=== PATIENT | female | born 1970 | race Caucasian/White ===

== ENCOUNTER → 2019-02-13 16:52 | Outpatient (CLI) | payer OTHER, SELFPAY ==
[2019-02-16 08:33] LABS: Age Gdln ACOG Testing 30-65 (.)
[2019-02-16 11:55] LABS: HPV APTIMA, High Risk Negative (Negative)
[2019-02-16 11:57] LABS: HPV Reflexed? YES, CHARGE PATIENT
== END ==
PROVIDERS: Visit Provider Obstetrics & Gynecology
DX: Z12.4 Encounter for screening for malignant neoplasm of cervix (principal)
CPT/HCPCS: 87624; 88175; G0145

== ENCOUNTER → 2020-06-25 | Outpatient (CLI) | payer OTHER, SELFPAY ==
[2020-06-28 20:35] LABS: HPV APTIMA, High Risk Negative (Negative)
== END | disposition home or self-care (01) ==
LOC: LABSPEC 15:01
PROVIDERS: Visit Provider Obstetrics & Gynecology
DX: Z12.4 Encounter for screening for malignant neoplasm of cervix (principal)
CPT/HCPCS: 87624; 88175; G0145

== ENCOUNTER → 2020-10-05 | Outpatient (CLI) | payer OTHER, SELFPAY | END | disposition home or self-care (01) | LOC: LABSPEC 10:52 | PROVIDERS: Visit Provider Otolaryngology | DX: H92.10 Otorrhea, unspecified ear (principal) | CPT/HCPCS: 87070; 87075; 87205 ==

== ENCOUNTER → 2021-01-03 | Outpatient (CLI) | payer OTHER, SELFPAY | END | disposition home or self-care (01) | LOC: LABSPEC 15:14 | PROVIDERS: Referring Provider Otolaryngology; Visit Provider Otolaryngology | DX: H92.10 Otorrhea, unspecified ear (principal) | CPT/HCPCS: 87070; 87075; 87205 ==

== ENCOUNTER → 2022-05-05 | Outpatient (CLI) | payer OTHER, SELFPAY ==
--- NOTE | 2022-05-04 13:50 | FLU_PTH ---
PATIENT: MARCY PIRES [facility]: [facility] U#:[id number] AGE/SX: 51/F ROOM: RE05/05/[address]: Dr. David Live MD : 1970 BED: DIS: 05/05/2022 SPEC #: [id number] RECD: 05/05/22 08:14 STATUS: PETER POOL #: [id number] ELPIDIO: 05/04/22 13:[address]: David Live DEPT: CYTOLOGY RECD BY: Gia Silvestre ENTERED: 05/05/22 10:12 SP TYPE: Fluid OTHR DR: Dr. Radha Fischer MD Tissues: A - Thyroid gland, NOS B - Thyroid gland, NOS Procedures: Special Stain Group II Surgery Specimen Level IV Cytospin Fluid Cytology Other HEADER OPERATION: Fine needle aspiration right mid pole thyroid nodule PRE-OP DIAGNOSIS: Multiple thyroid nodules TISSUE SUBMITTED: A - Right mid pole thyroid nodule fluid, B - Right mid pole thyroid nodule x4 slides DIAGNOSIS CYTOLOGY A. Right mid pole thyroid nodule fluid, fine needle aspiration (cytospin and cell block): Consistent with benign follicular/colloid nodule ([place] Category II). Adequate for evaluation. See comment. B. Right mid pole thyroid nodule, fine needle aspiration (smears): Consistent with benign follicular/colloid nodule ([place] Category II). Adequate for evaluation. See comment. SJ:richa 05/06/2022 COMMENT Correlation with clinical, radiologic findings and appropriate follow up are necessary. CYTOLOGY STUDY Slides are reviewed. CYTOLOGY GROSS A - Received is 40 ml of red cloudy fluid labeled with the patient's name and and designated per the requisition as right mid pole thyroid nodule. Submitted for cytology preparation including cell block. B - Received are four smears labeled with the patient's name and designated per the requisition as right mid pole thyroid nodule. Submitted for staining. / richa 05/05/2022 TC:5 CPT: 06178 x2, 42529
== END | disposition home or self-care (01) ==
PROVIDERS: PCP Internal Medicine; Referring Provider Surgery; Visit Provider Surgery
DX: E04.2 Nontoxic multinodular goiter (principal)
CPT/HCPCS: 88108; 88161; 88305; 88313

== ENCOUNTER 2022-08-13 08:25 | Day surgery (SDC) | payer OTHER, SELFPAY ==
[2022-08-13] MEDS: Lactated Ringers 1,000 ML 15 ML IV (09:07)
[2022-08-13 09:09] VITALS: BP 110/78; PULSE 70; RESP 18; TEMP 36.6; O2SAT 100; BMI 20.2
[2022-08-13 09:21] LABS: Internal QC Validated? YES +Cl - CLEAR BKGD; Pregnancy, Serum, hCG Quali. NEGATIVE Negative
--- NOTE | 2022-08-13 09:26 | HP.PCM_ITS ---
[facility] - General General Date of Admission: 08/13/22 Date of Service: 08/13/22 Chief Complaint: Screening colonoscopy HPI Narrative MARCY PIRES, is a 51 F who presents today for screening colonoscopy. She has no significant past history. She does not take any medicines on a daily basis. She had a colonoscopy approximately 20 years ago for constipation. She does not have any abdominal pain. She not have any nausea, vomiting or diarrhea. She is not having any chest pain or shortness of breath. She is here for screening colonoscopy. FORMERLY [facility], [facility] Medical History (Updated 08/05/22 @ 12:21 by Aby Brown) Thyroid nodule Wears glasses Home Medications azelastine 137 mcg (0.1 %) nasal spray aerosol 2 spray intranasal DAILY 05/04/22 [History Last Taken Unknown] fluticasone propionate 50 mcg/actuation nasal spray,suspension (Allergy Relief (fluticasone)) 2 spray intranasal DAILY 05/04/22 [History Last Taken Unknown] multivitamin 1 tab PO DAILY 05/25/22 [History Last Taken Unknown] polyethylene glycol 3350 17 gram/dose oral powder (Miralax) 4 g PO DAILY PRN constipation 05/25/22 [History Last Taken Unknown] Allergy/AdvReac Type Severity Reaction Status Date / Time No Known Allergies Allergy Verified 08/13/22 09:06 Family History (Updated 05/25/22 @ 08:44 by Yvette Conteh) Father Cancer prostate, stomach Heart disease Hypertension High cholesterol CVA (cerebral vascular accident) Colon polyps Mother Hypertension Osteoporosis Grandfather Wendi Gehrig disease Surgical History (Updated 08/05/22 @ 12:21 by Aby Brown) History of colonoscopy History of wisdom tooth extraction S/P LASIK surgery of both eyes S/P tonsillectomy Social History Smoking Status: Never smoker alcohol intake: current details: 2-3 drinks per month substance use type: does not use ROS Review of Systems ROS Unobtainable: other Constitutional Constitutional: Denies fatigue, fever(s), poor appetite, weight gain or weight loss ENT HEENT: Denies mouth lesions Cardiovascular Cardiovascular: Denies abdominal bloating, abdominal edema or abdominal pain Respiratory/Chest Respiratory/Chest: Denies change in mental status, change in phlegm color, chest congestion or chest tightness Gastrointestinal Gastrointestinal: Denies belching, bloating, change in bowel habits, change in stool character, chewing difficulty, coffee ground emesis, constipation, cramping, diarrhea, dyspepsia, dysphagia, early satiety, excessive flatus, fecal incontinence, heartburn, hematemesis, hematochezia, hemorrhoids, loose stools, melena, nausea, odynophagia, rectal bleeding, tenesmus, vomiting or weight changes Genitourinary Genitourinary: Denies abdominal discomfort, burning urination or itching Musculoskeletal Musculoskeletal: Reports as per HPI; Denies muscle weakness or myalgias Integumentary Integumentary: Denies jaundice Neurologic Neurologic: Denies lack of coordination or weakness Psychiatric Psychiatric: Denies confusion, depression, memory loss, mood swings, paranoia or suicidal ideation Endocrine Endocrinology: Denies systems reviewed and no addt'l complaints, except as documented Hematologic/Lymphatic Hematologic/Lymphatic: Denies anemia, easy bleeding, easy bruising or lymphadenopathy Allergic/Immunologic Allergic/Immunologic: Denies systems reviewed and no addt'l complaints, except as documented Vital Signs Vital Signs Vital Signs: 08/13/22 09:09 08/13/22 09:09 Temperature 97.8 F Temperature Source Temporal Pulse Rate 70 Respiratory Rate 18 Respiratory Pattern Normal Blood Pressure 110/78 Blood Pressure Mean 88 Blood Pressure Source Monitor Blood Pressure Position Semi-Fowlers Blood Pressure Location Right Arm Pulse Ox 100 Oxygen Delivery Method Room Air Weight Weight: 122 lb Body Mass Index (BMI) 20.2 Physical Exam Const alert General Appearance: cooperative Orientation / Consciousness: oriented to person HEENT hearing grossly normal bilaterally Head and Scalp: normal to inspection Face and Sinus: face symmetric Nose: external nose normal Mouth: oral and palatal mucosa normal Eyes conjunctivae normal General Eye: normal appearance of both eyes Neck full ROM General: normal visual inspection Lymph Lymphatic: no lymphadenopathy noted Chest inspection of chest normal and palpation of chest normal Chest: symmetrical chest wall rise Resp normal respiratory effort Effort and Inspection: able to speak in complete sentences Cardio regular rate GI non-distended Percussion: normal to percussion Rectal Exam: deferred Neuro Speech: speech normal Gait (Neuro): normal gait Results Lab / Micro Data Labs: Laboratory Results - last 24 hr 08/13/22 09:00: Serum , Qual NEGATIVE Assessment & Plan Assessment/Plan (1) Encounter for screening for malignant neoplasm of colon: PLAN: She was explained alternatives, risk, benefits including outstanding bleeding, infection, sepsis, perforation, need for emergent surgery . She will have an ASA of 2.
[2022-08-13 10:03] VITALS: BP 110/78; BP 95/59; PULSE 74; RESP 16; TEMP 36.1; O2SAT 98
--- NOTE | 2022-08-13 10:04 | OP.COLON_ITS ---
Patient Name: Oriana Curtis Procedure Date: 08/13/2022 9:29 AM Date of : 1970 Age: 51 Procedure: Colonoscopy Indications: Screening for colorectal malignant neoplasm Providers: Carlo Morrison DO Referring MD: Carlo Morrison DO Medicines: Monitored Anesthesia Care Patient Profile: This is a 51 year old female. Refer to note in patient chart for documentation of history and physical. Last Colonoscopy: more than 10 years ago. Complications: No immediate complications. Procedure: Pre-Anesthesia Assessment: - Prior to the procedure, a History and Physical was performed, and patient medications and allergies were reviewed. The patient is competent. The risks and benefits of the procedure and the sedation options and risks were discussed with the patient. All questions were answered and informed consent was obtained. Patient identification and proposed procedure were verified by the physician in the pre-procedure area. Mental Status Examination: alert and oriented. Prophylactic Antibiotics: The patient does not require prophylactic antibiotics. Prior Anticoagulants: The patient has taken no previous anticoagulant or antiplatelet agents. ASA Grade Assessment: II - A patient with mild systemic disease. After reviewing the risks and benefits, the patient was deemed in satisfactory condition to undergo the procedure. The anesthesia plan was to use monitored anesthesia care (MAC). Immediately prior to administration of medications, the patient was re-assessed for adequacy to receive sedatives. The heart rate, respiratory rate, oxygen saturations, blood pressure, adequacy of pulmonary ventilation, and response to care were monitored throughout the procedure. The physical status of the patient was re-assessed after the procedure. After I obtained informed consent, the scope was passed under direct vision. Throughout the procedure, the patient's blood pressure, pulse, and oxygen saturations were monitored continuously. The Colonoscope was introduced through the anus and advanced to the cecum, identified by appendiceal orifice and ileocecal valve. The colonoscopy was performed without difficulty. The patient tolerated the procedure well. The quality of the bowel preparation was adequate. Scope In: 9:39:05 AM Scope Withdrawal Time 0 hours 7 minutes 38 seconds Scope Out: 9:57:54 AM Total Procedure Duration Time 0 hours 18 minutes 49 seconds Findings: The perianal and digital rectal examinations were normal. The colon (entire examined portion) appeared normal. Impression: - The entire examined colon is normal. - No specimens collected. Recommendation: - Discharge patient to home. - Resume previous diet. - Continue present medications. - Repeat colonoscopy in 10 years for screening purposes. Procedure Code(s): --- Professional --- G0121, Colorectal cancer screening; colonoscopy on individual not meeting criteria for high risk CPT copyright 2017 [employer]. All rights reserved. The codes documented in this report are preliminary and upon mortar man review may be revised to meet current compliance requirements. Carlo Morrison DO 08/13/2022 10:04:30 AM This report has been signed electronically. Number of Addenda: 0 Note Initiated On: 08/13/2022 9:29 AM
[2022-08-13 10:05] VITALS: BP 110/78; BP 92/63; PULSE 57; RESP 16; O2SAT 97
--- NOTE | 2022-08-13 10:05 | OP.CCLET_ITS ---
08/13/2022 Radha Fischer [address] [place] [address] Re : Colonoscopy procedure for Oriana Curtis Dear Dr. Fischer This procedure was performed on August. My impressions and recommendations are as follows: Impressions : - The entire examined colon is normal. - No specimens collected. Recommendations : - Discharge patient to home. - Resume previous diet. - Continue present medications. - Repeat colonoscopy in 10 years for screening purposes. My findings are described in the full procedure note, which is enclosed. If I can be of further assistance, please feel free to contact me at . Sincerely, Carlo Morrison, 08/13/2022 10:04:30 AM This report has been signed electronically.
[2022-08-13 10:10] VITALS: BP 110/78; BP 92/52; PULSE 56; RESP 16; O2SAT 100
[2022-08-13 10:15] VITALS: BP 110/78; BP 91/63; PULSE 56; RESP 16; TEMP 36.1; O2SAT 100
[2022-08-13 10:28] VITALS: BP 110/78
== END 2022-08-13 11:09 | disposition home or self-care (01) ==
LOC: EN 08:29 → AC 08:36
PROVIDERS: Anesthesiology; PCP Internal Medicine; Referring Provider Internal Medicine Gastroenterology; Visit Provider Internal Medicine Gastroenterology
PROC: 0DJD8ZZ Inspection of Lower Intestinal Tract, Via Natural or Artificial Opening Endoscopic (ICD-10-PCS; CPT 45378; principal; 2022-08-13 09:25)
DX: Z12.11 Encounter for screening for malignant neoplasm of colon (principal); E04.1 Nontoxic single thyroid nodule
CPT/HCPCS: 45378; 84703; J7120; J2405

== ENCOUNTER → 2023-05-07 | Outpatient (CLI) | payer OTHER, SELFPAY ==
--- NOTE | 2023-05-07 11:58 | US_ITS ---
INDICATION: Multiple thyroid nodules EXAMINATION: Ultrasound US Thyroid (eg thyroid, parathyroid, parotid) TECHNIQUE: Rudd scale and color doppler imaging was performed of the thyroid gland. COMPARISON: None. FINDINGS: RIGHT THYROID LOBE: 4.4 x 2.2 x 1.9 cm. Heterogenous echotexture with normal vascularity. [Multiple nodules, 2 largest nodules measured. Largely solid nodule midpole 1.0 x 1.0 x 0.7 cm, TI RADS level 3 or mildly suspicious. Second nodule midpole measures 1.2 x 1.2 x 0.9 cm, largely solid. TI RADS level 3 or mildly suspicious. LEFT THYROID LOBE: 4.6 x 2.1 x 1.9 cm. Heterogenous echotexture with normal vascularity. [Multiple nodules, largest 2 measured. Largest nodule mid to inferior pole, 1.3 x 1.2 x 0.7 cm, mixed cystic and solid, TI RADS level 2 or nonsuspicious. Second nodule inferior to mid pole, 1.1 x 1.1 x 0.6 cm, largely solid and isoechoic, TI RADS level 3, mildly suspicious. ISTHMUS: 2 mm. No thyroid nodules are present. US/Thyroid IMPRESSION: Multiple bilateral thyroid nodules, 2 which are mildly suspicious but insufficient size for routine follow-up or fine-needle aspiration per TI RADS criteria. Suggest sonographic follow-up in one, 3 and 5 years. Electronically Signed: Robin Mon MD at 20:05 EST ,
--- OUTSIDE RECORDS SUMMARY | 2023-05-07 12:33 | XMS RPT_ITS | CCD ---
Author Name Unknown Address [address] [place] [address] Organization [facility] Care Team Providers Care Ct Manager Name Role Phone TAMMIE MEI C Unavailable Unavailable HAMIDA, TAMMIE C Unavailable Unavailable HAMIDA, TAMMIE C Unavailable Unavailable REGAN MCDANIEL Unavailable Unavailable PROVIDER, UNKNOWN Unavailable Unavailable HAMIDA, TAMMIE C Unavailable Unavailable HAMIDA, TAMMIE C Unavailable Unavailable HAMIDA, TAMMIE C Unavailable Unavailable GANTA, RADHA NAFISA Unavailable Unavailable GANTA, RADHA NAFISA Unavailable Unavailable PROVIDER, UNKNOWN Unavailable Unavailable Radha Bhatia MD Primary Care Provider Radha Bhatia MD Primary Care Provider [phone] GANTA, RADHA Primary Care Unavailable GANTA, RADHA Referring Unavailable GANTA, RADHA Primary Care Unavailable GANTA, RADHA Referring Unavailable GANTA, RADHA Primary Care Unavailable GANTA, RADHA Attending Unavailable GANTA, RADHA Primary Care Unavailable GANTA, RADHA Referring Unavailable GANTA, RADHA Primary Care Unavailable WISWELL, AIXA Referring Unavailable GANTA, RADHA Primary Care Unavailable WISWELL, AIAX Attending Unavailable GANTA, RADHA Primary Care Unavailable GANTA, RADHA Primary Care Unavailable GANTA, RADHA Referring Unavailable Allergies Allergy Classification Reported Allergen(s) Allergy Type Date of Onset Reaction(s) Facility (1 source) Penicillin Drug Allergy [facility] Repository Medications Current Medications Medication Drug Class(es) Dates Sig (Normalized) Sig (Original) amoxicillin 875 mg / clavulanate 125 mg oral tablet (1 source) Penicillin-class Antibacterial Start: 05-31-2022 End: 06-05-2022 take 1 tablet by mouth twice daily amoxicillin-clav ulanic acid (AUGMENTIN) 875-125 mg per tablet Take 1 tablet by mouth twice daily for 5 days. 10 tablet 0 05/31/2022 06/05/2022 Active Completed/Discontinued Medications Medication Drug Class(es) Dates Sig (Normalized) Sig (Original) azelastine hydrochloride 0.137 mg/actuat metered dose nasal spray (6 sources) Histamine-1 Receptor Antagonist Start: 01-31-2018 take 2 spray(s) nasal route once daily azelastine (ASTELIN,ASTEPRO) 0.1% nasal spray Use 2 Sprays in each nostril once daily. 11 01/31/2018 Active Problems Active Problems Problem Classification Problem Date Documented Da te Episodic/Chronic Other female genital disorders (1 source) Unspecified condition associated with female genital organs and menstrual cycle; Translations: [Adnexal fullness] Onset: 03-19-2023 Episodic Other inflammatory condition of skin (6 sources) Rosacea; Translations: [Rosacea, unspecified] Onset: 11-20-2009 11-20-2009 Chronic Other upper respiratory disease (3 sources) Allergic rhinitis due to pollen; Translations: [Allergic rhinitis due to pollen] Onset: 02-23-2018 Chronic Other upper respiratory disease (6 sources) Allergic rhinitis; Translations: [Other allergic rhinitis] Onset: 08-21-2016 08-21-2016 Chronic Other upper respiratory disease (1 source) Congestion of nasal sinus; Translations: [Nasal congestion] Episodic Other upper respiratory infections (1 source) Viral upper respiratory tract infection; Translations: [Acute upper respiratory infection, unspecified] Episodic Thyroid disorders (3 sources) Goiter; Translations: [Nontoxic goiter, unspecified] Onset: 04-01-2022 Chronic Past or Other Problems Problem Classification Problem Date Documented Da te Episodic/Chronic Disorders of teeth and jaw (6 sources) Temporomandibular joint disorder; Translations: [Unspecified temporomandibular joint disorder, unspecified side] Onset: 0 11-20-2009 Episodic Immunizations and screening for infectious disease (3 sources) Viral screening status; Translations: [Encounter for screening for other viral diseases] Onset: 3 Episodic Other gastrointestinal disorders (7 sources) Constipation; Translations: [Constipation, unspecified] Onset: 0 11-20-2009 Episodic Other screening for suspected conditions (not mental disorders or infectious disease) (5 sources) Patient encounter status; Translations: [Encounter for screening mammogram for malignant neoplasm of breast] Onset: 3 Episodic Results Test Name Value Interpretation Reference Range Facil ity Vital Signs Date Time Vital Sign Value Performing Clinician Collin mendez 05-31-2022 10:17-0400 Body temperature 99 [degF] Priyanka Athy PA-C Work Phone: [facility] 05-31-2022 10:17-0400 Body weight 56.97 kg Priyanka Athy PA-C Work Phone: [facility] 05-31-2022 10:17-0400 Diastolic blood pressure 76 mm[Hg] Priyanka Athy PA-C Work Phone: [facility] 05-31-2022 10:17-0400 Heart rate 77 /min Priyanka Athy PA-C Work Phone: [facility] 05-31-2022 10:17-0400 Respiratory rate 18 /min Priyanka Athy PA-C Work Phone: [facility] 05-31-2022 10:17-0400 SaO2% (BldA) [Mass fraction] 99 % Priyanka Athy PA-C Work Phone: [facility] 05-31-2022 10:17-0400 Systolic blood pressure 112 mm[Hg] Priyanka Athy PA-C Work Phone: [facility] 03-25-2022 12:58-0500 Body height 162.6 cm Radha Bhatia MD Work Phone: [facility] 03-25-2022 12:58-0500 Body temperature 98.71 [degF] Radha Bhatia MD Work Phone: [facility] 03-25-2022 12:58-0500 Body weight 57.61 kg Radha Bhatia MD Work Phone: [facility] 03-25-2022 12:58-0500 Diastolic blood pressure 70 mm[Hg] Radha Bhatia MD Work Phone: [facility] 03-25-2022 12:58-0500 Heart rate 68 /min Radha Bhatia MD Work Phone: [facility] 03-25-2022 12:58-0500 Respiratory rate 12 /min Radha Bhatia MD Work Phone: [facility] 03-25-2022 12:58-0500 SaO2% (BldA) [Mass fraction] 100 % Radha Bhatia MD Work Phone: [facility] 03-25-2022 12:58-0500 Systolic blood pressure 120 mm[Hg] Radha Bhatia MD Work Phone: [facility] Encounters Encounter Date Encounter Type Care Provider Facility Start: 03-19-2023 End: 03-19-2023 ambulatory RADHA BHATIA Facility:[facility] Start: 03-05-2023 End: 03-05-2023 ambulatory RADHA GANKINGS Facility:[facility] Start: 05-31-2022 End: 05-31-2022 ambulatory [facility] Facility:[facility] Start: 05-31-2022 End: 05-31-2022 Patient encounter procedure Priyanka Torres PA-C Work Phone: [facility] Procedures Date Procedure Procedure Detail Performing Clinician Start: 08-13-2022 Colonoscopy Screen Wst r Start: 04-01-2022 Us soft tissue head & neck real time imge docmartin Bhatia MD Work Phone: Start: 03-25-2022 End: 03-25-2022 Mammography Radha Bhatia MD Work Phone: Start: 03-12-2021 Mammography Radha snell MD Work Phone: Start: 01-05-2020 Lipid 1996 panel - S tripp or Plasma Screen Wstr Start: 08-23-2017 Adult depression scr eening assessment Radha Bhatia MD Work Phone: Plan of Treatment Date Care Activity Detail Author Start: 08-13-2032 Colonoscopy Colonoscopy [facility] Start: 08-13-2032 Colorectal Cancer Screening Colorectal Cancer Screening [facility] Start: 06-25-2025 HPV TESTING HPV TESTING [facility] Start: 06-25-2025 PAP TESTING PAP TESTING [facility] Start: 04-01-2025 DIABETES SCREEN DIABETES SCREEN [facility] Start: 04-01-2025 Diabetes Screening Diabetes Screening [facility] Start: 01-04-2025 Lipid 1996 panel - Serum or Plasma Lipid Screening [facility] Start: 01-04-2025 LIPID SCREEN LIPID SCREEN [facility] Start: 09-10-2024 Urine microalbumin profile [facility] Start: 03-25-2023 Mammography [facility] Start: 01-04-2023 DIABETES SCREEN DIABETES SCREEN [facility] Start: 11-13-2022 Covid-19 Vaccine () Covid-19 Vaccine () [facility] Start: 11-13-2022 Influenza vaccination Influenza Vaccine (#1) [facility] Start: 03-25-2022 End: 05-25-2022 Fasting glucose [Mass/volume] in Serum or Plasma GLUCOSE FASTING BLD Lab Routine Annual physical exam Expected: 03/25/2022, Expires: 05/25/2022 [facility] Work Phone: Immunizations Immunization Date Immunization Notes Care Provider Fa robbin 01-16-2022 influenza virus vaccine, unspecified formulation Screen Wstr [facility] 12-21-2018 influenza, seasonal, injectable Radha Bhatia MD Work Phone: [facility] Work Phone: 02-23-2018 influenza, injectabl e, quadrivalent, contains preservative Radha Bhatia MD Work Phone: [facility] 09-10-2014 tetanus toxoid, redu ankit diphtheria toxoid, and acellular pertussis vaccine, adsorbed Radha Bhatia MD Work Phone: [facility] 08-22-1999 measles, mumps and rubella virus vaccine Radha Bhatia MD Work Phone: [facility] Work Phone: Payers Date Payer Category Payer Unknown [id number] 2021 Unknown [id number] 2009 Unknown [id number] 1971 Unknown [id number] 1971 Unknown [id number] Unknown [id number] Social History Date Type Detail Facility Start: 03-25-2011 Tobacco smoking stat us NHIS Never smoked tobacco [facility] Start: 03-25-2011 Tobacco use and exposure Smoke less tobacco non-user [facility] Start: 08-21-2016 End: 03-25-2022 Alcohol intake Current drinker of alcohol (finding) [facility] Start: 11-14-2019 End: 03-19-2022 History SDOH Alcohol Frequency 3 [facility] Start: 11-14-2019 End: 03-19-2022 History SDOH Alcohol Std Drinks 1 [facility] Start: 11-20-2009 History SDOH Alcohol Comment rare [facility] Start: 11-14-2019 End: 03-19-2022 History SDOH Social Connections Phone 5 [facility] Start: 11-14-2019 End: 03-19-2022 History SDOH Social Connections Get Together 2 [facility] Start: 1970 Sex Assigned At Not on file C [facility] Start: 11-13-2019 Education 18 [facility] Start: 03-19-2022 End: 03-27-2022 History of Social function [facility] Start: 03-19-2022 End: 03-27-2022 Social connection and isolation panel [facility] Do you belong to any clubs or organizations such as mandaeism groups, unions, fraternal or athletic groups, or school groups? Yes [facility] Are you now , , , , never or living with a partner? [facility] How often to you hav e a drink containing alcohol? 2-4 times a month [facility] How many standard dr inks containing alcohol do you have on a typical day? 1 or 2 [facility] How often do you hav e 6 or more drinks on 1 occasion? Never [facility] How hard is it for y ou to pay for the very basics like food, housing, medical care, and heating Not hard at all [facility] Do you feel stress - tense, restless, nervous, or anxious, or unable to sleep at night because your mind is troubled all the time - these days [OSQ] Only a little [facility] (I/We) worried wheth er (my/our) food would run out before (I/we) got money to buy more. Never true [facility] In the past 12 month s, was there a time when you were not able to pay the mortgage or rent on time? No [facility] Start: 12-24-2021 Gender identity Identifies as female gender (finding) [facility] Start: 12-24-2021 Sexual orientation Heterosexual (fin ding) [facility] Clinical Notes 03-25-2022 to 03-19-2023 Priyanka Torres PA-C - 05/31/2022 11:28 AM Evi Kelly RDMS - 04/01/2022 7:45 AM ESTLetter - Mammography Coordinator - 03/25/2022 6:30 PM Cristiano Bhatia MD - 03/25/2022 1:13 PM EST Note Date & Type Note Facility 03-19-2023 Note HNO ID: [id number] Author: EVI WASSERMAN RDMS Service: ? Author Type: Heading Saw Operator Type: Progress Notes Filed: 03/19/2023 12:10 Note Text: Radiology Service Progress Note PATIENT NAME: Marcy Curtis DATE OF SERVICE: March 19, 2023 TIME: 12:10 PM PATIENT IDENTITY VERIFICATION COMPLETED USING TWO (2) IDENTIFIERS: Name and Date of confirmed by patient verbally. FALL SCREENING: Has the patient had 2 falls in the last year or 1 fall with injury or currently using an Ambulatory Assistive Device (Walker, Cane, Wheelchair, Crutches, etc.)? No PATIENT GENDER DATA: Female. status: : No status: NO. PATIENT RELEVANT IMPLANT DATA REVIEWED: Not Applicable RADIOLOGY DEPARTMENT: Ultrasound PERIPHERAL IV DATA: Not applicable SIGNED BY: Evi Wasserman RDMS March 19, 2023 12:10 PM [facility] 03-05-2023 Note HNO ID: [id number] Author: Aixa Soliman MD Service: ? Author Type: Physician Type: Progress Notes Filed: 03/05/2023 12:33 PM Note Text: Sewer offered: Patient declines. Marcy is a 52 year old who presents for an annual gynecologic exam with complaints, possible yeast infection . Has used Monistat 3 twice recently and then Monistat 7 02/26/23 with improvement in her symptoms. She was having burning and itching. Noticing anxiety and some perimenopausal symptoms. Was on Zoloft and Prozac in past with side effects. Then tried continuous ocp as anxiety seemed to be cyclic. Postmenopausal: No, regular monthly menstrual cycles HRT use: No. Last Pap: 2011 normal HPV: 2020 negative History of abnormal pap: No Last mammogram: 2022 normal Hot flashes: No Night sweats: Yes Vaginal dryness: No OB History No obstetric history on file. [employer] History LMP: 02/24/2023, Having periods Age at Menarche: Age at First : Age at Menopause: [employer] History Comments: Sexual Activity: Yes; Male Contraception: Vasectomy PAST MEDICAL HISTORY Diagnosis Date Constipation Rosacea TMJ (temporomandibular joint disorder) PAST SURGICAL HISTORY Procedure Laterality Date TONSILLECTOMY AND ADENOIDECTOMY AGE 13/> FAMILY HISTORY Problem Relation Age of Onset Hypertension Mother Osteoporosis Mother Hypertension Father other (GERD [Other]) Father Heart Father irregular heartbeat other (other [Other]) Father Stage 1 tumor carcigen in lower stomach 40-60% of stomach removed Cancer Father Carcinoid tumor other (Other [Other]) Brother Hip replacement other (Dementia [Other]) Maternal Grandmother Heart Maternal Grandmother irregular heartbeat other (Wendi Gerig's Disease [Other]) Maternal Grandfather other (CHF [Other]) Maternal Grandfather SOCIAL HISTORY Social History Tobacco Use Smoking status: Never Smokeless tobacco: Never Vaping Use Vaping Use: Never used Substance Use Topics Alcohol use: Yes Comment: rare Drug use: No REVIEW OF SYSTEMS Abdomen: No abdominal pain, nausea, vomiting, diarrhea, or constipation. No bloating, early satiety, indigestion, or increased flatulence. Bladder: No dysuria, gross hematuria, urinary frequency, urinary urgency, or incontinence Breast: No breast lumps, nipple d/c, overlying skin changes, redness or skin retraction Allergies and current medication updated:Yes EXAM: BP 100/60 Ht 5' 5 (1.65m) Wt 121 lb 9.6 oz (55.2kg) LMP 02/24/2023 BMI 20.24 kg/(m2). GENERAL: pleasant, female in no apparent distress HEENT: Normocephalic, atraumatic, mucus membranes moist, and no lesions NECK: full range of motion DERMATOLOGY: Normal, without lesions, non-icteric, and non-hirsute BREAST: soft, non-tender, symmetric, no dominant mass, normal nipple-areolar complex, no lymphadenopathy, and no nipple discharge CHEST: Normal inspiratory effort ABDOMEN: soft, +RLQ tenderness and fullness, non acute PELVIC: external genitalia normal, normal Bartholin's glands, urethra, Time's glands, no vulvar lesions, no cervical lesions, good vaginal support, physiologic discharge present, normal appearing perineal body and perianal region BIMANUAL: uterus normal size, shape and consistency, no adnexal masses, and +RLQ tenderness RECTOVAGINAL: deferred. NEURO: exam grossly non-focal EXTREMITIES: normal ASSESSMENT/PLAN: 1) Health maintenance: Pap/HPV up to date. Mammogram ordered Nutrition, exercise and routine health maintenance exams reviewed. Colon cancer screening: up to date with screening TSH/lipids/glucose: followed by PCP RLQ pain: Pelvic US. Discussed constipation as well 2) Follow up one year or sooner as needed Aixa Soliman DO [facility] 07-21-2022 Note HNO ID: [id number] Author: Quinton Waters Service: ? Author Type: ? Type: Progress Notes Filed: 07/21/2022 12:49 PM Note Text: Patient scheduled with [place] for beginning of August. Cancelled order, gave patient fax number for PCP office to send results. 07/21 [facility] 07-09-2022 Note HNO ID: [id number] Author: Quinton Waters Service: ? Author Type: ? Type: Progress Notes Filed: 07/09/2022 10:53 AM Note Text: 1st failed attempt to reschedule colonoscopy, left VM 07/09 [facility] 05-31-2022 Note HNO ID: [id number] Author: Priyanka Torres PA-C Service: ? Author Type: Physician Air Brush Decorator Type: Progress Notes Filed: 05/31/2022 11:30 AM Note Text: This note was created using NoteWriter. Subjective Marcy Curtis is a 51 year old female. HPI Presents with head congestion, cough for the past 10 days. Her daughter has been sick with similar symptoms for 2 weeks. She states sinus congestion and pressure worsened yesterday but this morning she actually felt better. No fever. She did have some chills yesterday. No vomiting or diarrhea. She took a home COVID test which was negative. She does have allergies and uses Flonase daily. Review of Systems Constitutional: Positive for chills. Negative for fever. HENT: Positive for congestion, postnasal drip, rhinorrhea, sinus pressure and sinus pain. Negative for ear pain and sore throat. Respiratory: Positive for cough. Negative for shortness of breath and wheezing. Cardiovascular: Negative. Gastrointestinal: Negative. Genitourinary: Negative. Musculoskeletal: Negative. All other systems reviewed and are negative. PAST MEDICAL HISTORY Diagnosis Date Constipation Rosacea TMJ (temporomandibular joint disorder) Current Outpatient Medications Medication Sig Dispense Refill polyethylene glycol 3350 (MIRALAX) 17 gram/dose powder Take by mouth. one dose daily as needed 850 g 1 azelastine (ASTELIN,ASTEPRO) 0.1% nasal spray Use 2 Sprays in each nostril once daily. 11 fluticasone (FLONASE) 50 mcg/actuation nasal spray Use 2 Sprays in each nostril once daily. 1 Bottle 11 Lysine 500 mg ORAL Tab Take by mouth. 0 amoxicillin-clavulanic acid (AUGMENTIN) 875-125 mg per tablet Take 1 tablet by mouth twice daily for 5 days. 10 tablet 0 Magnesium Oxide 500 mg ORAL Tab Take by mouth once daily. 0 vitamin e 1,000 unit ORAL capsule Take 1,000 Units by mouth once daily. calcium-vitamin D (CALCIUM 500+D) 500 mg(1,250mg) -200 unit ORAL per tablet Take 1 tablet by mouth three times daily with meals. [place]-3 Fatty Acids-Vitamin E (FISH OIL) 1,000 mg ORAL Cap Take 1 capsule by mouth. No current facility-administered medications for this visit. PAST SURGICAL HISTORY Procedure Laterality Date TONSILLECTOMY AND ADENOIDECTOMY AGE 13/> FAMILY HISTORY Problem Relation Age of Onset Hypertension Father other (GERD [Other]) Father Heart Father irregular heartbeat Hypertension Mother other (Wendi Gerig's Disease [Other]) Maternal Grandfather other (CHF [Other]) Maternal Grandfather other (Dementia [Other]) Maternal Grandmother Heart Maternal Grandmother irregular heartbeat Osteoporosis Mother other (other [Other]) Father Stage 1 tumor carcigen in lower stomach 40-60% of stomach removed other (Other [Other]) Brother Hip replacement Cancer Father Carcinoid tumor Social History Tobacco Use Smoking status: Never Smokeless tobacco: Never Substance Use Topics Alcohol use: Yes Comment: rare Drug use: No Objective BP 112/76 Pulse 77 Temp 37.2 ?C (99 ?F) Resp 18 Wt 57 kg (125 lb 9.6 oz) LMP 10/20/2019 SpO2 99% BMI 21.56 kg/m? Physical Exam Vitals reviewed. Constitutional: Appearance: Normal appearance. HENT: Head: Normocephalic and atraumatic. Right Ear: Tympanic membrane, ear canal and external ear normal. Left Ear: Tympanic membrane, ear canal and external ear normal. Nose: Congestion present. Mouth/Throat: Mouth: Mucous membranes are moist. Pharynx: Oropharynx is clear. Cardiovascular: Rate and Rhythm: Normal rate and regular rhythm. Heart sounds: Normal heart sounds. Pulmonary: Effort: Pulmonary effort is normal. Breath sounds: Normal breath sounds. Musculoskeletal: Cervical back: Neck supple. Skin: General: Skin is warm and dry. Neurological: General: No focal deficit present. Mental Status: She is alert. Assessment and Plan ASSESSMENT/PLAN: 1. Viral URI with cough - ICD9: 465.9, ICD10: J06.9 (primary diagnosis) - Discussed viral etiology and rationale for treatment. - Symptomatic treatment with prn analgesia - Supportive care with fluids and rest 2. Sinus congestion - ICD9: 478.19, ICD10: R09.81 Discussed with her that this is likely still viral at this point and with the sinus pressure improving this morning would hold off on antibiotics. I did give her a prescription if this worsens again for Augmentin for 5 days. Continue use of Mucinex and Flonase. Patient agreeable with plan. Priyanka Torres PA-C [facility] 05-31-2022 History of Presen t illness Narrative This note was created using NoteWriter. Subjective Marcy Curtis is a 51 year old female. HPI Presents with head congestion, cough for the past 10 days. Her daughter has been sick with similar symptoms for 2 weeks. She states sinus congestion and pressure worsened yesterday but this morning she actually felt better. No fever. She did have some chills yesterday. No vomiting or diarrhea. She took a home COVID test which was negative. She does have allergies and uses Flonase daily. Review of Systems Constitutional: Positive for chills. Negative for fever. HENT: Positive for congestion, postnasal drip, rhinorrhea, sinus pressure and sinus pain. Negative for ear pain and sore throat. Respiratory: Positive for cough. Negative for shortness of breath and wheezing. Cardiovascular: Negative. Gastrointestinal: Negative. Genitourinary: Negative. Musculoskeletal: Negative. All other systems reviewed and are negative. PAST MEDICAL HISTORY Diagnosis Date Constipation Rosacea TMJ (temporomandibular joint disorder) Current Outpatient Medications Medication Sig Dispense Refill polyethylene glycol 3350 (MIRALAX) 17 gram/dose powder Take by mouth. one dose daily as needed 850 g 1 azelastine (ASTELIN,ASTEPRO) 0.1% nasal spray Use 2 Sprays in each nostril once daily. 11 fluticasone (FLONASE) 50 mcg/actuation nasal spray Use 2 Sprays in each nostril once daily. 1 Bottle 11 Lysine 500 mg ORAL Tab Take by mouth. 0 amoxicillin-clavulanic acid (AUGMENTIN) 875-125 mg per tablet Take 1 tablet by mouth twice daily for 5 days. 10 tablet 0 Magnesium Oxide 500 mg ORAL Tab Take by mouth once daily. 0 vitamin e 1,000 unit ORAL capsule Take 1,000 Units by mouth once daily. calcium-vitamin D (CALCIUM 500+D) 500 mg(1,250mg) -200 unit ORAL per tablet Take 1 tablet by mouth three times daily with meals. [place]-3 Fatty Acids-Vitamin E (FISH OIL) 1,000 mg ORAL Cap Take 1 capsule by mouth. No current facility-administered medications for this visit. PAST SURGICAL HISTORY Procedure Laterality Date TONSILLECTOMY & ADENOIDECTOMY AGE 13/> FAMILY HISTORY Problem Relation Age of Onset Hypertension Father other (GERD [Other]) Father Heart Father irregular heartbeat Hypertension Mother other (Wendi Gerig's Disease [Other]) Maternal Grandfather other (CHF [Other]) Maternal Grandfather other (Dementia [Other]) Maternal Grandmother Heart Maternal Grandmother irregular heartbeat Osteoporosis Mother other (other [Other]) Father Stage 1 tumor carcigen in lower stomach 40-60% of stomach removed other (Other [Other]) Brother Hip replacement Cancer Father Carcinoid tumor Social History Tobacco Use Smoking status: Never Smokeless tobacco: Never Substance Use Topics Alcohol use: Yes Comment: rare Drug use: No Objective BP 112/76 Pulse 77 Temp 37.2 C (99 F) Resp 18 Wt 57 kg (125 lb 9.6 oz) LMP 10/20/2019 SpO2 99% BMI 21.56 kg/m Physical Exam Vitals reviewed. Constitutional: Appearance: Normal appearance. HENT: Head: Normocephalic and atraumatic. Right Ear: Tympanic membrane, ear canal and external ear normal. Left Ear: Tympanic membrane, ear canal and external ear normal. Nose: Congestion present. Mouth/Throat: Mouth: Mucous membranes are moist. Pharynx: Oropharynx is clear. Cardiovascular: Rate and Rhythm: Normal rate and regular rhythm. Heart sounds: Normal heart sounds. Pulmonary: Effort: Pulmonary effort is normal. Breath sounds: Normal breath sounds. Musculoskeletal: Cervical back: Neck supple. Skin: General: Skin is warm and dry. Neurological: General: No focal deficit present. Mental Status: She is alert. Assessment and Plan ASSESSMENT/PLAN: 1. Viral URI with cough - ICD9: 465.9, ICD10: J06.9 (primary diagnosis) - Discussed viral etiology and rationale for treatment. - Symptomatic treatment with prn analgesia - Supportive care with fluids and rest 2. Sinus congestion - ICD9: 478.19, ICD10: R09.81 Discussed with her that this is likely still viral at this point and with the sinus pressure improving this morning would hold off on antibiotics. I did give her a prescription if this worsens again for Augmentin for 5 days. Continue use of Mucinex and Flonase. Patient agreeable with plan. Priyanka Torres PA-C documented in this encounter [facility] 04-14-2022 Note HNO ID: [id number] Author: Sarika Solis Service: ? Author Type: ? Type: Progress Notes Filed: 04/14/2022 12:08 PM Note Text: Patient scheduled colonoscopy on 06-08-22 [facility] 04-01-2022 Note HNO ID: [id number] Author: Evi Wasserman RDMS Service: ? Author Type: Heading Saw Operator Type: Progress Notes Filed: 04/01/2022 8:08 AM Note Text: Radiology Service Progress Note PATIENT NAME: Marcy Curtis DATE OF SERVICE: April 01, 2022 TIME: 8:07 AM PATIENT IDENTITY VERIFICATION COMPLETED USING TWO (2) IDENTIFIERS: Name and Date of confirmed by patient verbally. FALL SCREENING: Has the patient had 2 falls in the last year or 1 fall with injury or currently using an Ambulatory Assistive Device (Walker, Cane, Wheelchair, Crutches, etc.)? No PATIENT GENDER DATA: Female. status: : No status: NO. PATIENT RELEVANT IMPLANT DATA REVIEWED: Not Applicable RADIOLOGY DEPARTMENT: Ultrasound PERIPHERAL IV DATA: Not applicable SIGNED BY: Evi Wasserman RDMS April 01, 2022 8:07 AM [facility] 04-01-2022 History of Presen t illness Narrative Radiology Service Progress Note PATIENT NAME: Marcy Curtis DATE OF SERVICE: April 01, 2022 TIME: 8:07 AM PATIENT IDENTITY VERIFICATION COMPLETED USING TWO (2) IDENTIFIERS: Name and Date of confirmed by patient verbally. FALL SCREENING: Has the patient had 2 falls in the last year or 1 fall with injury or currently using an Ambulatory Assistive Device (Walker, Cane, Wheelchair, Crutches, etc.)? No PATIENT GENDER DATA: Female. status: : No status: NO. PATIENT RELEVANT IMPLANT DATA REVIEWED: Not Applicable RADIOLOGY DEPARTMENT: Ultrasound PERIPHERAL IV DATA: Not applicable SIGNED BY: Evi Wasserman RDMS April 01, 2022 8:07 AM documented in this encounter [facility] 03-27-2022 Note HNO ID: [id number] Author: Sarika Solis Service: ? Author Type: ? Type: Progress Notes Filed: 03/27/2022 1:45 PM Note Text: .1st failed attempt to contact patient to schedule a colonoscopy. Left message to return call. Sarika Solis [facility] 03-25-2022 Miscellaneous Notes March 25, 2022 PID: [id number] Marcy Curtis [id number] [phone] Dear Ms. Curtis, We are pleased to inform you that the results of your recent breast imaging exam on 03/25/2022 are normal. Your mammogram demonstrates that you have dense breast tissue, which could hide abnormalities. Dense breast tissue, in and of itself, is a relatively common condition. Therefore, this information is not provided to cause undue concern; rather, it is to raise your awareness and promote discussion with your health care provider regarding the presence of dense breast tissue in addition to other risk factors. Early detection of cancer is very important. We also understand recommendations regarding breast cancer screening are controversial. Please discuss with your primary care provider which strategy is best for you and whether a mammogram is right for you. Your imaging studies and report will be kept on file at [facility] as part of your permanent medical record and are available for your continuing care. Thank you for allowing us to help in meeting your health care needs. Sincerely, Dr. Venegas Interpreting Radiologist [facility] (Normal over 40) documented in this encounter [facility] 03-25-2022 Note HNO ID: [id number] Author: Radha Bhatia MD Service: ? Author Type: Physician Type: Progress Notes Filed: 03/25/2022 1:46 PM Note Text: Reason for Visit Patient presents with: Physical Marcy Curtis is a 51 year old female who presents here today for CPE. Health Maintenance HEPATITIS B(1 of 3 - 3-dose series) HEPATITIS C SCREENING HIV SCREENING COLORECTAL CANCER SCREENING PAP TESTING HPV TESTING COVID-19 VACCINE(4 - Booster for Moderna series) SHINGRIX VACCINE(1 of 2) DEPRESSION ASSESSMENT MAMMOGRAM HPI Diet- very healthy eater, cooks a lot of home made foods. Sleep- tries to sleep at least 7 hours Stress- she does have some stress from her anxious personality . Kids etc Exercise- she does not do any formal exercise. She had been to ENT . Following up with Dr Cosme cooper for the hole in the drum where the tube fell off It caused some fungal and bacterial infection. When the infection was there she had pain and when the fungus she had itching, she was being seen every 3 months and finally her ears have healed almost. Still has the tinnitus, she thinks it is still the same. Patient is going back to taking allergy shots after the hole is all fixed up. She has a goiter that we just noticed, she did not have any complaints except the hoarseness once in a while Still having her periods, and there are no hot flashes. But periods have changed a little bit. Also she has been having some weight gain. Patient did a pap last year. She is due for colonoscopy and she is willing to have it. No problem-specific Assessment AND Plan notes found for this encounter. PAST MEDICAL HISTORY Diagnosis Date Constipation Rosacea TMJ (temporomandibular joint disorder) PAST SURGICAL HISTORY Procedure Laterality Date TONSILLECTOMY AND ADENOIDECTOMY AGE 13/> FAMILY HISTORY Problem Relation Age of Onset Hypertension Father other (GERD [Other]) Father Heart Father irregular heartbeat Hypertension Mother other (Wendi Gerig's Disease [Other]) Maternal Grandfather other (CHF [Other]) Maternal Grandfather other (Dementia [Other]) Maternal Grandmother Heart Maternal Grandmother irregular heartbeat Osteoporosis Mother other (other [Other]) Father Stage 1 tumor carcigen in lower stomach 40-60% of stomach removed other (Other [Other]) Brother Hip replacement Cancer Father Carcinoid tumor Social History Tobacco Use Smoking status: Never Smokeless tobacco: Never Substance Use Topics Alcohol use: Yes Comment: rare Drug use: No Past medical history, appointments, medications, allergies reviewed. Pertinent Lab/Diagnostic Studies are reviewed and discussed today Current Outpatient Medications: polyethylene glycol 3350 (MIRALAX) 17 gram/dose powder escitalopram oxalate (ESCITALOPRAM) 5 mg tablet FLUoxetine (PROZAC) 10 mg capsule pimecrolimus (ELIDEL) 1 % cream azelastine (ASTELIN,ASTEPRO) 0.1% nasal spray miconazole (MONISTAT-DERM,ELIZABETH) 2 % cream fluticasone (FLONASE) 50 mcg/actuation nasal spray fluticasone (FLONASE) 50 mcg/actuation nasal spray Lysine 500 mg ORAL Tab Magnesium Oxide 500 mg ORAL Tab vitamin e 1,000 unit ORAL capsule calcium-vitamin D (CALCIUM 500+D) 500 mg(1,250mg) -200 unit ORAL per tablet [place]-3 Fatty Acids-Vitamin E (FISH OIL) 1,000 mg ORAL Cap Review of Systems CONSTITUTIONAL: No fevers, chills, nightsweats, unintended weight loss HEENT: Denies frequent or severe heaches, nasal congestion/sinus symptoms, problematic allergy problems. EYES: No diplopia or blurry vision. CARDIOVASCULAR: No chest pain, dyspnea, palpitations, orthopnea, PND, ankle edema. PULM: No dyspnea, unexplained cough. GI: No dysphagia/odynophagia, problematic reflux, constipation, diarrhea, changes in stool habits, hematochezia, melena. : No new urinary complaints, including dysuria, gross hematuria or pyuria. NEURO: No new balance problems, peripheral weakness/paresthesias or numbness of concern. MUSC-SKEL: No new joint pain, swelling, or erythema. PSY: No concerns regarding depression, anxiety or panic. INTEGUMENTARY: No new skin changes (rash, new or changing mole, new growth) Physical Exam BP 120/70 (BP Site: Left Arm, BP Position: Sitting, BP Cuff Size: Large Adult) Pulse 68 Temp 37.1 ?C (98.7 ?F) Resp 12 Ht 162.6 cm (5' 4 ) Wt 57.6 kg (127 lb) LMP 10/20/2019 SpO2 100% BMI 21.80 kg/m? General appearance: Well appearing, alert, in no acute distress, well-hydrated, well nourished. Skin: Skin color, texture, turgor normal, no suspicious rashes or lesions Head: Normocephalic, no masses, lesions, tenderness or abnormalities Eyes: Anicteric sclera. Pupils are equally round and reactive to light. Extraocular movements are intact. Ears: External ears normal, canals clear Nose/Sinuses: Nares normal, septum midline, mucosa normal, no drainage or sinus tenderness Oropharynx: Lips, mucosa, and tongue nor (more content not included)... [facility] 03-25-2022 History of Presen t illness Narrative Reason for Visit Patient presents with: Physical Marcy Curtis is a 51 year old female who presents here today for CPE. Health Maintenance HEPATITIS B(1 of 3 - 3-dose series) HEPATITIS C SCREENING HIV SCREENING COLORECTAL CANCER SCREENING PAP TESTING HPV TESTING COVID-19 VACCINE(4 - Booster for Moderna series) SHINGRIX VACCINE(1 of 2) DEPRESSION ASSESSMENT MAMMOGRAM HPI Diet- very healthy eater, cooks a lot of home made foods. Sleep- tries to sleep at least 7 hours Stress- she does have some stress from her anxious personality . Kids etc Exercise- she does not do any formal exercise. She had been to ENT . Following up with Dr Cosme cooper for the hole in the drum where the tube fell off It caused some fungal and bacterial infection. When the infection was there she had pain and when the fungus she had itching, she was being seen every 3 months and finally her ears have healed almost. Still has the tinnitus, she thinks it is still the same. Patient is going back to taking allergy shots after the hole is all fixed up. She has a goiter that we just noticed, she did not have any complaints except the hoarseness once in a while Still having her periods, and there are no hot flashes. But periods have changed a little bit. Also she has been having some weight gain. Patient did a pap last year. She is due for colonoscopy and she is willing to have it. No problem-specific Assessment & Plan notes found for this encounter. PAST MEDICAL HISTORY Diagnosis Date Constipation Rosacea TMJ (temporomandibular joint disorder) PAST SURGICAL HISTORY Procedure Laterality Date TONSILLECTOMY & ADENOIDECTOMY AGE 13/> FAMILY HISTORY Problem Relation Age of Onset Hypertension Father other (GERD [Other]) Father Heart Father irregular heartbeat Hypertension Mother other (Wendi Gerig's Disease [Other]) Maternal Grandfather other (CHF [Other]) Maternal Grandfather other (Dementia [Other]) Maternal Grandmother Heart Maternal Grandmother irregular heartbeat Osteoporosis Mother other (other [Other]) Father Stage 1 tumor carcigen in lower stomach 40-60% of stomach removed other (Other [Other]) Brother Hip replacement Cancer Father Carcinoid tumor Social History Tobacco Use Smoking status: Never Smokeless tobacco: Never Substance Use Topics Alcohol use: Yes Comment: rare Drug use: No Past medical history, appointments, medications, allergies reviewed. Pertinent Lab/Diagnostic Studies are reviewed and discussed today Current Outpatient Medications: polyethylene glycol 3350 (MIRALAX) 17 gram/dose powder escitalopram oxalate (ESCITALOPRAM) 5 mg tablet FLUoxetine (PROZAC) 10 mg capsule pimecrolimus (ELIDEL) 1 % cream azelastine (ASTELIN,ASTEPRO) 0.1% nasal spray miconazole (MONISTAT-DERM,ELIZABETH) 2 % cream fluticasone (FLONASE) 50 mcg/actuation nasal spray fluticasone (FLONASE) 50 mcg/actuation nasal spray Lysine 500 mg ORAL Tab Magnesium Oxide 500 mg ORAL Tab vitamin e 1,000 unit ORAL capsule calcium-vitamin D (CALCIUM 500+D) 500 mg(1,250mg) -200 unit ORAL per tablet [place]-3 Fatty Acids-Vitamin E (FISH OIL) 1,000 mg ORAL Cap Review of Systems CONSTITUTIONAL: No fevers, chills, nightsweats, unintended weight loss HEENT: Denies frequent or severe heaches, nasal congestion/sinus symptoms, problematic allergy problems. EYES: No diplopia or blurry vision. CARDIOVASCULAR: No chest pain, dyspnea, palpitations, orthopnea, PND, ankle edema. PULM: No dyspnea, unexplained cough. GI: No dysphagia/odynophagia, problematic reflux, constipation, diarrhea, changes in stool habits, hematochezia, melena. : No new urinary complaints, including dysuria, gross hematuria or pyuria. NEURO: No new balance problems, peripheral weakness/paresthesias or numbness of concern. MUSC-SKEL: No new joint pain, swelling, or erythema. PSY: No concerns regarding depression, anxiety or panic. INTEGUMENTARY: No new skin changes (rash, new or changing mole, new growth) Physical Exam BP 120/70 (BP Site: Left Arm, BP Position: Sitting, BP Cuff Size: Large Adult) Pulse 68 Temp 37.1 C (98.7 F) Resp 12 Ht 162.6 cm (5' 4 ) Wt 57.6 kg (127 lb) LMP 10/20/2019 SpO2 100% BMI 21.80 kg/m General appearance: Well appearing, alert, in no acute distress, well-hydrated, well nourished. Skin: Skin color, texture, turgor normal, no suspicious rashes or lesions Head: Normocephalic, no masses, lesions, tenderness or abnormalities Eyes: Anicteric sclera. Pupils are equally round and reactive to light. Extraocular movements are intact. Ears: External ears normal, canals clear Nose/Sinuses: Nares normal, septum midline, mucosa normal, no drainage or sinus tenderness Oropharynx: Lips, mucosa, and tongue normal, teeth and gums normal, oropharynx normal Neck: Supple, no adenopathy; thyroid symmetric, normal size, no bruits Back: Normal exam Lungs: Lungs clear to auscultation. No wheezing, rhonchi, rales Heart: RRR without murmur, gallop, or rubs. No ectopy Abdomen: Normal abdominal exam, Abdomen soft, non-tender. Bowel sounds normal. No masses, organomegaly Extremities: No deformities, edema, skin discoloration, clubbing or cyanosis. Good capillary refill. Musculoskeletal: No joint swelling, deformity, or tenderness Peripheral pulses: Normal Neuro: Gait normal. Reflexes normal and symmetric. Sensation grossly intact. ASSESSMENT/PLAN: 1. Annual physical exam - ICD9: V70.0, ICD10: Z00.00 (primary diagnosis) - Counseled on healthy diet and regular exercise - Calcium intake with supplements or by diet of 1000 mg/day for under 50, 7745-0544 mg/day for 50+ - GLUCOSE FASTING BLD 2. Constipation, unspecified constipation type - ICD9: 564.00, ICD10: K59.00 - POLYETHYLENE GLYCOL 3350 17 GRAM/DOSE ORAL POWDER 3. Special screening examination for viral disease - ICD9: V73.99, ICD10: Z11.59 - HEP C AB IA W/CONF SCRN 4. Screening for HIV (human immunodeficiency virus) - ICD9: V73.89, ICD10: Z11.4 - HIV 1 2 COMBO(AG/AB),WITH REFLEX TO DIFFERENTIATION 5. Special screening for malignant neoplasms, colon - ICD9: V76.51, ICD10: Z12.11 - COLONOSCOPY SCREENING 6. Goiter - ICD9: 240.9, ICD10: E04.9 - TSH BLD - T4 FREE/FREE THYROX - T3 FREE BLD - US THYROID/PARATHYROID Rahda Bhatia MD [facility] OPEN ACCESS QUESTIONNAIRE 1. Are you currently having any new or unusual stomach/gastrointestinal issues at this time such as constipation, diarrhea, abdominal pain, rectal bleeding etc?No 2. Do you have any difficulty swallowing? No 3. Do you have any implanted devices such as a defibrillator, pacemaker, cardiac stents or deep brain stimulator? No 4. Do you take any Blood thinners such as Coumadin, Plavix, Xarelto, Eliquis, Brilinta or any other blood thinner? No 5. Do you have any new or past cardiac (heart) or pulmonary (lung) issues? No 6. Do you currently use any oxygen? No 7. Have you been hospitalized in the past 6 weeks? No 8. Have you had difficulty with anesthesia previously re: Difficult intubation? No Other difficulty or allergic reaction to anesthesia other than post op N/V? No 9. Are you on dialysis? No 10. Do you have any bleeding disorders such as hemophilia or Factor 5? No 11. Are you an Insulin Dependent Diabetic? No IF ANY OF THE TOP ELEVEN QUESTIONS ARE ANSWERED YES PLEASE SCHEDULE THE PATIENT FOR A CONSULT. N/A 12. Is the patient's BMI 40 or greater? No:Body mass index is 21.8 kg/m .. 13. Do you take any narcotics or anti-Anxiety medications? No 14. Do you use any illegal or recreational drugs including marijuana? No 15. Any alcohol use: No. 16. Have you been diagnosed with chronic liver disease such as hepatitis or cirrhosis? No 17. Do you have a seizure disorder? No 18. Do you have ulcerative colitis or Crohn's disease? No 19. Are you or could you be ? No 20. Any other important health information we should be made aware of prior to your colonoscopy? No To be completed by LIP: Did patient have MAC anesthesia with a previous endoscopy procedure? No Patient appropriate for Open Access Colonoscopy: Yes: appropriate for Open Access Procedure Checklist: Prior to closing the encounter: Complete questionnaire: Yes Confirm Prep order has been Ordered/Pended: Yes. Patient's procedure could be delayed if not given the script for the prep. Please ensure the prep is escripted to pharmacy or printed. Instructions for the prep will print upon filing or pending this smartset. Please send all open access questionnaires to [email or web address] Pool #[id number] documented in this encounter [facility] Annual physical exam- Primary Routine general medical examination at a health care facility Constipation, unspecified constipation type Special screening examination for viral disease Special screening examination for unspecified viral disease Screening for HIV (human immunodeficiency virus) Special screening examination for other specified viral diseases Special screening for malignant neoplasms, colon Goiter Goiter, unspecified documented in this encounter [facility] note* Diagnosis Viral URI with cough- Primary Acute upper respiratory infections of unspecified site Sinus congestion Other diseases of nasal cavity and sinuses documented in this encounter [facility] note* Diagnosis Screening mammogram for breast cancer documented in this encounter [facility] note* Diagnosis Goiter Goiter, unspecified documented in this encounter [facility] for referral (narrative)* Diagnostic Procedure Only (Routine) - Authorized Specialty Diagnoses / Procedures Referred By Simran lucia Referred To Contact [facility] Diagnoses Goiter Procedures US THYROID/PARATHYROID US SOFT TISSUE HEAD & NECK REAL TIME IMGE Radha Fernandez MD [address] [place] [id number] [facility] Referral ID Status Reason Start Date Expiration Date Visits Requested Visits Authorized [id number] Authorized Auto-Generat ed Referral 03/25/2022 04/24/2023 1 1 * Outpatient Procedure (Routine) - Pending Review Specialty Diagnoses / Procedures Referred By Simran lucia Referred To Contact [facility] Diagnoses Special screening for malignant neoplasms, colon Procedures COLONOSCOPY SCREENING COLONOSCOPY FLX DX W/[place] [address] [place] [address] [facility] [address] [place] [address] Referral ID Status Reason Start Date Expiration Date Visits Requested Visits Authorized [id number] Pending Review Auto-Generat ed Referral 03/25/2022 03/25/2023 1 1 [facility] for referral (narrative)* Diagnostic Procedure Only (Routine) - Closed Specialty Diagnoses / Procedures Referred By Simran lucia Referred To Contact [facility] Diagnoses Screening mammogram for breast cancer Procedures LAMBERTO SCREENING SCREENING MAMMOGRAPHY BI 2-[place] [address] [place] [id number] [facility] [address] [place] [address] Referral ID Status Reason Start Date Expiration Date V isits Requested Visits Authorized [id number] Closed Auto-Generate d Referral 03/25/2022 03/14/2023 1 1 [facility] for referral (narrative)* Diagnostic Procedure Only (Routine) - Closed Specialty Diagnoses / Procedures Referred By Simran lucia Referred To Contact [facility] Diagnoses Goiter Procedures US THYROID/PARATHYROID US SOFT TISSUE HEAD & NECK REAL TIME IMGE Radha Fernandez MD [facility] [phone] [place] [address] Referral ID Status Reason Start Date Expiration Date V isits Requested Visits Authorized [id number] Closed Auto-Generate d Referral 03/25/2022 04/24/2023 1 1 [facility] for visit Narrative* Diagnostic Procedure Only (Routine) - Closed Specialty Diagnoses / Procedures Referred By Simran lucia Referred To Contact [facility] Diagnoses Screening mammogram for breast cancer Procedures LAMBERTO SCREENING SCREENING MAMMOGRAPHY BI 2-VIEW BREAST INC Radha Costa MD [address] [place] [address] [facility] [address] [place] [phone] Referral ID Status Reason Start Date Expiration Date V isits Requested Visits Authorized [id number] Closed Auto-Generate d Referral 03/25/2022 03/14/2023 1 1 [facility] Summary Purpose Family History No Family History Records FoundNo Family History Records Found Advance Directives No Advanced Directives Records FoundNo Advanced Directives Records Found Additional Source Comments INFORMATION SOURCE (unrecogn ized section and content) DATE CREATED AUTHOR AUTHOR'S ORGANIZ ATION 03/21/2023 [facility] Source Comments (unrecognize d section and content) In the event this informatio n is protected by the Federal Confidentiality of Alcohol and Drug Abuse Patient Records regulations: The Federal rules restrict any use of the information to criminally investigate or prosecute any alcohol or drug abuse patient.[facility] event this information is protected by the Federal Confidentiality of Alcohol and Drug Abuse Patient Records regulations: The Federal rules restrict any use of the information to criminally investigate or prosecute any alcohol or drug abuse patient.[facility] the event this information is protected by the Federal Confidentiality of Alcohol and Drug Abuse Patient Records regulations: The Federal rules restrict any use of the information to criminally investigate or prosecute any alcohol or drug abuse patient.[facility] the event this information is protected by the Federal Confidentiality of Alcohol and Drug Abuse Patient Records regulations: The Federal rules restrict any use of the information to criminally investigate or prosecute any alcohol or drug abuse patient.[facility] the event this information is protected by the Federal Confidentiality of Alcohol and Drug Abuse Patient Records regulations: The Federal rules restrict any use of the information to criminally investigate or prosecute any alcohol or drug abuse patient.[facility] the event this information is protected by the Federal Confidentiality of Alcohol and Drug Abuse Patient Records regulations: The Federal rules restrict any use of the information to criminally investigate or prosecute any alcohol or drug abuse patient.[facility] Care Teams (unrecognized sec tion and content) Ct Manager Relationship Specialty Start Date End Date Radha Bhatia MD [address] [place], [place] [phone] PCP - General Internal Medicine 08/21/16 Ct Manager Relationship Specialty Start Date End Date Radha Bhatia MD [address] [place] [address] PCP - General Internal Medicine 08/21/16 Ct Manager Relationship Specialty Start Date End Date Radha Bhatia MD [address] [place], [place] [id number] PCP - General Internal Medicine 08/21/16 Ct Manager Relationship Specialty Start Date End Date Radha Bhatia MD [address] [place], [place] [id number] PCP - General Internal Medicine 6/9/17 Ct Manager Relationship Specialty Start Date End Date Radha Bhatia MD [address] [place], [place] [id number] PCP - General Internal Medicine 08/21/16 Reason for Visit (unrecogniz ed section and content) Specialty Diagnoses / Procedures Referred By Contac t Referred To Contact Internal Medicine / INTERNAL MEDICINE Diagnoses Encounter for general adult medical examination without abnormal findings routine physical for 51 year old Procedures OFFICE CONSULTATION NEW/ESTAB PATIENT 15 MIN MYC PHYSICAL Self Radha Bhatia MD [address] [place] [address] Referral ID Status Reason Start Date Expiration Date Visits Re quested Visits Authorized [id number] Closed 03/25/2022 03/14/2023 1 1 Reason Comments Head Congestion Chest congestion, co ugh, wheezing x1 week Reason Comments Radiology US Specialty Diagnoses / Procedures Referred By Contac t Referred To Contact US IMAGING Diagnoses Goiter Procedures US THYROID/PARATHYROID US SOFT TISSUE HEAD & NECK REAL TIME IMGE DOCM Radha Bhatia MD [address] [place] [address] [place] [id number] Referral ID Status Reason Start Date Expiration Date V isits Requested Visits Authorized [id number] Closed Auto-Generate d Referral 03/25/2022 04/24/2023 1 1 FOR RECORDS PERTAINING TO PATIENTS WHO ARE OR HAVE BEEN ENROLLED IN A CHEMICAL DEPENDENCY/SUBSTANCEABUSE PROGRAM, SOME INFORMATION MAY BE OMITTED. This clinical summary was aggregated from multiple sources. Caution should be exercised in using it in the provision of clinical care. This summary normalizes information from multiple sources, and as a consequence, information in this document may materially change the coding, format and clinical context of patient data. In addition, data may be omitted in some cases. CLINICAL DECISIONS SHOULD BE BASED ON THE PRIMARY CLINICAL RECORDS. [employer] provides no warranty or guarantee of the accuracy or completeness of information in this document.
== END | disposition home or self-care (01) ==
LOC: US 11:57
PROVIDERS: PCP Internal Medicine; Visit Provider Surgery
DX: E04.2 Nontoxic multinodular goiter (principal)
CPT/HCPCS: 76536

== ENCOUNTER → 2024-04-11 | Outpatient (CLI) | payer OTHER, SELFPAY ==
--- NOTE | 2024-04-11 15:30 | US_ITS ---
PROCEDURE: THYROID REASON FOR EXAM: Palpable nodule. TECHNIQUE: Thyroid ultrasound COMPARISON: None. FINDINGS: Right thyroid lobe measures 4.2 x 1.6 x 2.1 cm. Left thyroid lobe measures 4.7 x 1.9 x 1.8 cm. Isthmus thickness is 3 mm.. Thyroid Size: Normal Background Echotexture: Heterogenous bilaterally. Thyroid Nodules are present, 4 on the right and 3 on the left: Right thyroid: In the right mid thyroid, a solid nodule is measured at 10 x 9 x 8 mm; TI-RADS 3. Follow-up not requ ired due to size. At the right mid thyroid, a predominantly solid complex nodule is measured at 14 x 9 x 7 mm; TI-RADS 1. Benign. In the right inferior thyroid, a complex nodule is measured as 7 x 9 6 mm; TI-RADS 3. Follow-up not required due to size. In the right posterior inferior thyroid, a solid nodule is measured at 11 x 6 x 6 mm. TI-RADS 3. Fo llow-up not required due to size. Left thyroid: In the left mid thyroid, a complex nodule is measured at 11 x 11 x 6 mm; TI-RADS 2. Not suspicious. At the left inferior thyroid, a complex nodule is measured at 7 x 6 x 5 mm; TI-RADS 3. Follow-up not required due to size. In the left mid thyroid, a complex nodule is measured at 13 x 11 x 7 mm. TI-RADS 3. Follow-up not r equired due to size. US/Thyroid IMPRESSION: Heterogenous thyroid, with numerous bilateral nodules. Based on all the variou s nodule characteristics, follow-up is not required, based on sonographic criteria. Reading Location: [address]
== END | disposition home or self-care (01) ==
PROVIDERS: PCP Internal Medicine; Referring Provider Surgery; Visit Provider Surgery
DX: E04.2 Nontoxic multinodular goiter (principal)
CPT/HCPCS: 76536

== ENCOUNTER → 2025-02-20 | Outpatient (CLI) | payer OTHER, SELFPAY ==
--- NOTE | 2025-02-20 13:17 | US_ITS ---
PROCEDURE: THYROID 02/20/2025 REASON FOR EXAM: THYROID NODULES TECHNIQUE: Procedure Code: USTHY Modality: US Procedure: THYROID COMPARISON: 04/11/2024 FINDINGS: Right lobe 5.0 x 2.1 x 1.9 cm, heterogeneous echotexture with increased vascularity. Right lobe nodule 1 measures 1.2 x 0.9 x 0.7 cm, solid, midpole , vascular. Right lobe nodule 2 measures 1.4 x 1.4 x 0.7 cm, solid hypoechoic, midpole. Right lobe nodule 3 measures 1.1 x 0.6 x 0.6 cm. Left lobe 5.4 x 2.3 x 1.8 cm, heterogeneous echotexture with increased vascularity. Left lobe nodule 1 measures 1.0 x 0.9 x 0.5 cm, cystic with solid component, midpole. Left lobe nodule 2 measures 1.3 x 1.3 x 0.7 cm, complex cyst, midpole. Left lobe nodule 3 measures 1.5 x 1.0 x 0.7 cm, solid/cystic, mid pole. Isthmus measures 0.4 cm. Additional finding: hypoechoic vascular nodule posterior to the right lobe measuring 1.1 x 0.6 x 0.6 cm, possibly parathyroid versus posterior thyroid nodule. Multinodular appearance; borders difficult to differentiate. US/Thyroid IMPRESSION: Multinodular heterogeneous thyroid gland with multiple right and left thyroid n odules as detailed. TR3 nodules. Hypoechoic vascular nodule posterior to the right lobe, possibly parathyroid ve rsus posterior thyroid nodule. Reading [facility]
== END | disposition home or self-care (01) ==
PROVIDERS: PCP Internal Medicine; Referring Provider Surgery; Visit Provider Surgery
DX: E04.2 Nontoxic multinodular goiter (principal)
CPT/HCPCS: 76536

== ENCOUNTER → 2025-03-13 | Outpatient (CLI) | payer OTHER, SELFPAY ==
[2025-03-13 10:36] LABS: Calcium 9.5 mg/dL (7.6-11.0); PTHIN 37 pg/mL (11-61); Vitamin D,25 Hydroxy 42.0 ng/mL (30-100)
== END | disposition home or self-care (01) ==
LOC: LAB 08:45
PROVIDERS: PCP Internal Medicine; Referring Provider Surgery; Visit Provider Surgery
DX: M81.0 Age-related osteoporosis without current pathological fracture (principal)
CPT/HCPCS: 36415; 82306; 82310; 83970